=== PATIENT | male | born 1985 ===

== ENCOUNTER 2022-01-17 10:35 | Outpatient (CLI) | payer SELFPAY | END 2022-01-17 10:36 | disposition home or self-care (01) | LOC: CSHWCC 10:35 | PROVIDERS: ATTEND Nurse Practitioner Family | DX: T81.89XD Other complications of procedures, not elsewhere classified, subsequent encounter (principal) | CPT/HCPCS: 97605; 99202; G0463 ==

== ENCOUNTER 2022-01-19 10:58 | Outpatient (CLI) | payer SELFPAY | END 2022-01-19 10:59 | disposition home or self-care (01) | LOC: CSHWCC 10:58 | PROVIDERS: ATTEND Nurse Practitioner Family | DX: T81.89XD Other complications of procedures, not elsewhere classified, subsequent encounter (principal) ==

== ENCOUNTER 2022-01-21 08:41 | Outpatient (CLI) | payer SELFPAY | END 2022-01-21 08:42 | disposition home or self-care (01) | LOC: CSHWCC 08:41 | PROVIDERS: ATTEND Nurse Practitioner Family | DX: T81.89XD Other complications of procedures, not elsewhere classified, subsequent encounter (principal) | CPT/HCPCS: 97605 ==

== ENCOUNTER 2022-01-24 08:55 | Outpatient (CLI) | payer SELFPAY | END 2022-01-24 08:56 | disposition home or self-care (01) | LOC: CSHWCC 08:55 | PROVIDERS: ATTEND Nurse Practitioner Family | DX: T81.89XD Other complications of procedures, not elsewhere classified, subsequent encounter (principal) | CPT/HCPCS: 97605 ==

== ENCOUNTER 2022-01-26 13:50 | Outpatient (CLI) | payer SELFPAY | END 2022-01-26 13:51 | disposition home or self-care (01) | LOC: CSHWCC 13:50 | PROVIDERS: ATTEND Nurse Practitioner Family | DX: T81.89XD Other complications of procedures, not elsewhere classified, subsequent encounter (principal) ==

== ENCOUNTER 2022-01-27 11:21 | Outpatient (CLI) | payer SELFPAY | END 2022-01-27 11:22 | disposition home or self-care (01) | LOC: CSHWCC 11:21 | PROVIDERS: ATTEND Nurse Practitioner Family | DX: T81.89XD Other complications of procedures, not elsewhere classified, subsequent encounter (principal) ==

== ENCOUNTER 2022-02-04 08:54 | Outpatient (CLI) | payer SELFPAY | END 2022-02-04 08:55 | disposition home or self-care (01) | LOC: CSHWCC 08:54 | PROVIDERS: ATTEND Nurse Practitioner Family | DX: T81.89XD Other complications of procedures, not elsewhere classified, subsequent encounter (principal) | CPT/HCPCS: 99212; G0463 ==

== ENCOUNTER 2022-02-08 14:48 | Outpatient (CLI) | payer SELFPAY | END 2022-02-08 14:49 | disposition home or self-care (01) | LOC: CSHWCC 14:48 | PROVIDERS: ATTEND Nurse Practitioner Family | DX: T81.89XD Other complications of procedures, not elsewhere classified, subsequent encounter (principal) | CPT/HCPCS: 97605; 99212; G0463 ==

== ENCOUNTER 2022-02-18 10:31 | Outpatient (CLI) | payer SELFPAY | END 2022-02-18 10:32 | disposition home or self-care (01) | LOC: CSHWCC 10:31 | PROVIDERS: ATTEND Nurse Practitioner Family | DX: T81.89XD Other complications of procedures, not elsewhere classified, subsequent encounter (principal) | CPT/HCPCS: 99212; G0463 ==